=== PATIENT | male | born 1955 | race Caucasian/White ===

== ENCOUNTER 2018-04-12 21:22 | Emergency (ER) | payer MEDICARE, OTHER ==
[~2018-04-12] VITALS: Ht 180.3 cm; Wt 58.0 kg
[2018-04-12 21:31] VITALS: BP 155/109
[2018-04-12] MEDS ORDERED: CEFAZOLIN PMX 1GM/50ML 50 ML IVPB ONE (22:00)
[2018-04-12] MEDS ORDERED: SODIUM CHLORIDE FLUSH 10ML SYR IVF ONE (22:00)
[2018-04-12] MEDS ORDERED: MORPHINE SULFATE 4 MG/ML, 1ML IV PRN (22:00)
[2018-04-12] MEDS ORDERED: VANCOMYCIN PER PHARMACY IV ONE (22:00)
[2018-04-12] MEDS ORDERED: VANCOMYCIN PMX 1GM/200ML 200 ML IV ONE (22:30)
[2018-04-12] MEDS ORDERED: PHARMACOKINETIC CONSULTATION MC ONE (22:30)
[2018-04-12] MEDS ORDERED: CLINDAMYCIN 300 MG CAPSULE PO ONE (22:30)
== END 2018-04-12 23:00 | disposition left against medical advice (07) ==
LOC: ED 22:17
DX: L03.113 Cellulitis of right upper limb (principal); L03.114 Cellulitis of left upper limb; F17.210 Nicotine dependence, cigarettes, uncomplicated; Z72.9 Problem related to lifestyle, unspecified; Z91.14 Patient's other noncompliance with medication regimen; Z63.8 Other specified problems related to primary support group; Z75.9 Unspecified problem related to medical facilities and other health care
CPT/HCPCS: 99283; 99406